=== PATIENT | female | born 1965 | race Caucasian/White ===

== ENCOUNTER 2018-01-25 09:14 | Day surgery (SDC) | payer OTHER ==
[2018-01-25] MEDS ORDERED: Lactated Ringer's 500 ML IV ONE (11:35)
[2018-01-25] MEDS ORDERED: Midazolam 2 MG/2 ML VIAL ONE (12:17)
[2018-01-25] MEDS ORDERED: Propofol 10 mg/ml Inj (20 ML) ONE (12:17)
[2018-01-25 12:53] VITALS: TEMP 97
[2018-01-25 13:24] VITALS: BP 102/65; PULSE 63; RESP 13; O2SAT 99
== END 2018-01-25 13:45 | disposition home or self-care (01) ==
LOC: H.ENDO 09:14
PROVIDERS: ATTEND Internal Medicine Gastroenterology
DX: Z12.11 Encounter for screening for malignant neoplasm of colon (principal); K64.8 Other hemorrhoids; K21.9 Gastro-esophageal reflux disease without esophagitis; Z85.3 Personal history of malignant neoplasm of breast; Z92.21 Personal history of antineoplastic chemotherapy
CPT/HCPCS: 45378; 88305; J2001; J2250; J2704; J7120